=== PATIENT | female | born 1960 | race Caucasian/White ===

== ENCOUNTER 2022-06-26 11:05 | Emergency (ER) | payer SELFPAY ==
[~2022-06-26] VITALS: Ht 145 cm; Wt 90.7 kg
[~2022-06-26 11:05] MED LIST: PANT20TA2 PO; PRO AIR 90 MCG PO; RANI75TA30 PO; SCR1T1 PO
--- NOTE | 2022-06-26 11:20 | ED Syncope ---
General Chief Complaint: Dizziness/Syncope Stated Complaint: SYNCOPE Nursing Triage Note: PT PASSED OUT WHILE AT [facility] ET CAME BY EMS. COVID, FLU, AND STREP NEG. IV STARTED WITH NS BY [facility]. Source of Information: Patient Exam Limitations: No Limitations (KYAW JOHNSON APRN) History of Present Illness Date Seen by Provider: Jun 26, 2022 Time Seen by Provider: 11:19 Initial Comments To ER by EMS from [facility] where she presented with reports of nausea and vomiting today. She vomited once after taking a puff of her albuterol inhaler. She was tested for COVID flu and strep and was negative. She passed out while at [facility]. IV was started Timing/Prior Episodes: No Prior History Symptoms Prior to Episode: None Precipitating Factors: None Loss of Consciousness: No Loss of Consciousness Current Symptoms: Nausea (KYAW JOHNSON APRN) Initial Comments Patient initially seen by nurse practitioner, Kyaw Johnson. Patient is a 62-year-old female who was at work today when she was not feeling well. She had an episode of vomiting "yellow and orange" before she went to work. She just felt generalized malaise and body aches. No fevers or chills. She complained of some lower chest discomfort/upper abdominal discomfort that radiated into her back off-and-on today while at work. She left work due to feeling ill after having a negative COVID test. When she went back up to work for her flu test she had a syncopal event. She has no idea how long she was out for. She did not really have any symptoms prior to passing out. She is a diabetic. She had eaten this morning (3 granola bars). She denies dysuria, urgency or frequency. No diarrhea. No joint pains, rashes or swelling. No earache sore throat or runny nose. No cough. No shortness of breath. No headache. At the time of my evaluation she is completely asymptomatic of chest pain. She still feels some generalized malaise. All other review of systems reviewed and negative except as stated. Timing/Prior Episodes: No Prior History Symptoms Prior to Episode: Other (Chest discomfort radiating into her back) Loss of Consciousness: Brief (Seconds) Current Symptoms: Chest Pain, Nausea, Weakness (NAVEED POLK MD) Allergies and Home Medications Allergies Coded Allergies: diphenhydramine HCl (Unverified Allergy, Unknown, 09/15/12) Patient Home Medication List Home Medication List Reviewed: Yes (NAVEED POLK MD) Cephalexin (Cephalexin) 500 Mg Tablet, 500 MG PO TID Prescribed by: NAVEED POLK on 06/26/22 1340 Ondansetron (Ondansetron Odt) 4 Mg Tab.rapdis, 4 MG SL Q8H PRN for NAUSEA/VOMITING Prescribed by: NAVEED POLK on 06/26/22 1340 Pantoprazole Sodium (Protonix) 20 Mg Tablet.dr, 20 MG PO DAILY, (Reported) Entered as Reported by: SALUD GONG on 08/15/111746 Ranitidine Hcl (Ranitidine Hcl) 75 Mg Tablet, 150 MG PO BID, (Reported) Entered as Reported by: VICKI RANGEL on 08/12/11 08 Sucralfate (Carafate) 1 Gm Tab, 1 GM PO QID, (Reported) Entered as Reported by: SALUD GONG on 08/15/111746 [Pro Air 90 Mcg] , 2 PUFF PO QID, (Reported) Entered as Reported by: VICKI RANGEL on 08/12/11 0852 Review of Systems Constitutional: see HPI EENTM: no symptoms reported Respiratory: no symptoms reported Cardiovascular: chest pain Gastrointestinal: abdominal pain, nausea, vomiting Genitourinary: no symptoms reported : No Musculoskeletal: muscle cramps Skin: no symptoms reported Psychiatric/Neurological: Denies Headache, Denies Paresthesia, Denies Weakness; Other (Syncope) (NAVEED POLK MD) All Other Systems Reviewed Negative Unless Noted: Yes (NAVEED POLK MD) Past Nbnoraa-Jnxsds-Dzlcqz Hx Patient Social History Tobacco Use?: No Substance use?: No Alcohol Use?: No (KYAW JOHNSON APRN) Immunizations Up To Date 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 oz. kg; 43.00 BMI Method: (KYAW JOHNSON APRN) General Appearance: No Apparent Distress, WD/WN HEENT: PERRL/EOMI Neck: Normal Inspection Cardiovascular: Regular Rate, Rhythm, Normal Peripheral Pulses Respiratory: Chest Non Tender, Lungs Clear, Normal Breath Sounds, No Accessory Muscle Use, No Respiratory Distress Gastrointestinal: Normal Bowel Sounds, Non Tender, Soft Extremities: Normal Capillary Refill, Normal Inspection, Normal Range of Motion, Non Tender, No Calf Tenderness, No Pedal Edema Neurologic/Psychiatric: Alert, Oriented x3, No Motor/Sensory Deficits, Normal Mood/Affect, living manager II-XII Norm as Tested Cranial Nerves: Normal Hearing, Normal Speech, PERRL Coordination/Gait: Normal Finger to Nose, Normal Gait Motor/Sensory: No Motor Deficit, No Sensory Deficit, No Pronator Drift Skin: Normal Color, Warm/Dry (NAVEED POLK MD) Progress/Results/Core Measures Results/Orders Lab Results Laboratory Tests Test 06/26/22 11:14 06/26/22 12:23 06/26/22 12:53 Range/Units White Blood Count 17.1 H 4.3-11.0 10^3/uL Red Blood Count 4.42 3.80-5.11 10^6/uL Hemoglobin 14.2 11.5-16.0 g/dL Hematocrit 44 35-52 % Mean Corpuscular Volume 100 H 80-99 fL Mean Corpuscular Hemoglobin 32 25-34 pg Mean Corpuscular Hemoglobin Concent 32 32-36 g/dL Red Cell Distribution Width 12.3 10.0-14.5 % Platelet Count 211 130-400 10^3/uL Mean Platelet Volume 9.5 9.0-12.2 fL Immature Granulocyte % (Auto) 0 % Neutrophils (%) (Auto) 88 H 42-75 % Lymphocytes (%) (Auto) 4 L 12-44 % Monocytes (%) (Auto) 8 0-12 % Eosinophils (%) (Auto) 0 0-10 % Basophils (%) (Auto) 0 0-10 % Neutrophils # (Auto) 15.0 H 1.8-7.8 10^3/uL Lymphocytes # (Auto) 0.7 L 1.0-4.0 10^3/uL Monocytes # (Auto) 1.3 H 0.0-1.0 10^3/uL Eosinophils # (Auto) 0.0 0.0-0.3 10^3/uL Basophils # (Auto) 0.0 0.0-0.1 10^3/uL Immature Granulocyte # (Auto) 0.1 0.0-0.1 10^3/uL Neutrophils % (Manual) 82 % Lymphocytes % (Manual) 4 % Monocytes % (Manual) 8 % Band Neutrophils 6 % Toxic Granulation 1+ Blood Morphology Comment NORMAL Sodium Level 141 135-145 MMOL/L Potassium Level 4.6 3.6-5.0 MMOL/L Chloride Level 107 98-107 MMOL/L Carbon Dioxide Level 22 21-32 MMOL/L Anion Gap 12 5-14 MMOL/L Blood Urea Nitrogen 22 H 7-18 MG/DL Creatinine 0.75 0.60-1.30 MG/DL Estimat Glomerular Filtration Rate 91 BUN/Creatinine Ratio 29 Glucose Level 139 H 70-105 MG/DL Calcium Level 8.7 8.5-10.1 MG/DL Corrected Calcium 8.6 8.5-10.1 MG/DL Magnesium Level 1.5 L 1.6-2.4 MG/DL Total Bilirubin 0.5 0.1-1.0 MG/DL Aspartate Amino Transf (AST/SGOT) 15 5-34 U/L Alanine Aminotransferase (ALT/SGPT) 21 0-55 U/L Alkaline Phosphatase 69 40-136 U/L Troponin I < 0.028 <0.028 NG/ML Total Protein 7.1 6.4-8.2 GM/DL Albumin 4.1 3.2-4.5 GM/DL Urine Color YELLOW Urine Clarity CLEAR Urine pH 5.0 5-9 Urine Specific [place] >=1.030 1.016-1.022 Urine Protein TRACE H NEGATIVE Urine Glucose (UA) NEGATIVE NEGATIVE Urine Ketones 1+ H NEGATIVE Urine Nitrite NEGATIVE NEGATIVE Urine Bilirubin NEGATIVE NEGATIVE Urine Urobilinogen 0.2 < = 1.0 MG/DL Urine Leukocyte Esterase TRACE H NEGATIVE Urine RBC (Auto) NEGATIVE NEGATIVE Urine RBC 2-5 H /HPF Urine WBC 5-10 H /HPF Urine Squamous Epithelial Cells 2-5 /HPF Urine Renal Epithelial Cells NONE /HPF Urine Crystals NONE /LPF Urine Bacteria LARGE H /HPF Urine Casts NONE /LPF Urine Mucus NEGATIVE /LPF Urine Culture Indicated YES Influenza Type A (RT-PCR) Not Detected Not Detecte Influenza Type B (RT-PCR) Not Detected Not Detecte SARS-CoV-2 RNA (RT-PCR) Not Detected Not Detecte (NAVEED POLK MD) My Orders Orders - NAVEED POLK MD Covid 19 Inhouse Test (06/26/22 12:48) Influenza A And B By Pcr (06/26/22 12:48) Isolation Central Supply Req (06/26/22 12:48) Ketorolac Injection (Toradol Injection) (06/26/22 13:45) Ceftriaxone 1 Gm Pre-Mix (Rocephin 1 Gm (06/26/22 13:45) (NAVEED POLK MD) Vital Signs/I&O 06/26/22 06/26/22 11:05 14:15 Temp 36.8 Pulse 84 68 Resp 16 16 B/P (MAP) 123/69 (87) 120/68 Pulse Ox 94 94 O2 Delivery Room Air Room Air (NAVEED POLK MD) Blood Pressure Mean: 87 Progress Progress Note : Time: 13:35 Progress Note Patient seen and evaluated 62-year-old with a syncopal episode at work with generalized malaise, fatigue, upper abdominal and back pain, nausea and vomiting. Evaluation today includes physical exam, CBC, chemistry, urinalysis, COVID and flu test, EKG and chest x-ray. Patient has a leukocytosis of 17,000. She has evidence of bacteria and white cells in her urine. Vital signs are stable. She is afebrile. Physical exam is unremarkable. She has a normal-appearing EKG without signs of ectopy, it is sinus. Abdominal exam shows no pulsatile mass in the midline, minimal epigastric tenderness. Suspicion for urinary tract infection/a sending UTI. She was reexamined, still has some back pain. Again denies dysuria urgency frequency. Is not nauseated currently. Will treat with some Rocephin and Keflex as an outpatient. Advised return pre cautions. (NAVEED POLK MD) Initial ECG Impression Date: Jun 26, 2022 Initial ECG Impression Time: 11:37 Initial ECG Rate: 82 Initial ECG Rhythm: Normal Sinus Initial ECG Impression: Nonspecific Changes Initial ECG Comparisson: No Previous ECG Available (NAVEED POLK MD) Diagnostic Imaging Diagonstic Imaging: Xray Plain Films/CT/US/NM/MRI: chest Comments [facility] [place], [place] NAME: [facility] REC#: [id number] PT STATUS: REG ER : 1960 PHYSICIAN: KYAW JOHNSON APRN ADMIT DATE: 06/26/22/ER Draft Date of Exam:06/26/22 CHEST 1 VIEW, AP/PA ONLY INDICATION: Shortness of breath, syncope. Frontal chest obtained at 11:32 a.m. FINDINGS: There is cardiomegaly. There is no focal infiltrate or pneumothorax or pleural fluid. There is mild central vascular congestion without edema. IMPRESSION: Mild cardiomegaly and central vascular congestion. No jose david edema or infiltrate or pleural fluid. Dictated on workstation # [id number] Dict: 06/26/22 1215 Trans: 06/26/22 1219 [id number] Interpreted by: LATESHA WOODS MD Electronically signed by: (NAVEED POLK MD) Departure Impression Primary Impression: Syncope Qualified Codes: R55 - Syncope and collapse Additional Impression: Complicated UTI (urinary tract infection) Disposition: 01 HOME, SELF-CARE Condition: Improved Departure-Patient Inst. Decision time for Depature: 13:37 (NAVEED POLK MD) Referrals: NO,LOCAL PHYSICIAN (PCP/Family) Primary Care Physician Patient Instructions: Fainting, Adult ED, Urinary Tract Infection, Adult ED Add. Discharge Instructions: Take the antibiotics as prescribed. Drink plenty of fluids to stay well hydrated. Eat small frequent meals throughout the day. Tylenol/ibuprofen as needed for pain and fever over 100.4 If you have high fever, worsening pain, vomiting or any other emergent, concerning symptoms please come back to the Emergency Department for re- evaluation. Scripts Cephalexin (Cephalexin) 500 Mg Tablet 500 MG PO TID for 15 Days, #5 TAB Prov: NAVEED POLK MD 06/26/22 Ondansetron (Ondansetron Odt) 4 Mg Tab.rapdis 4 MG SL Q8H PRN for NAUSEA/VOMITING, #15 TAB Prov: NAVEED POLK MD 06/26/22 KYAW JOHNSON APRN Jun 26, 2022 11:20 NAVEED POLK MD Jun 26, 2022 11:55
[2022-06-26 11:24] LABS: BASOPHILS % (AUTO) 0 % (0-10); EOSINOPHILS % (AUTO) 0 % (0-10); HEMATOCRIT 44 % (35-52); HEMOGLOBIN 14.2 g/dL (11.5-16.0); LYMPHOCYTES # (AUTO) 0.7 10^3/uL (1.0-4.0); LYMPHOCYTES % (AUTO) 4 % (12-44); MEAN CORPUSCULAR HEMOGLOBIN 32 pg (25-34); MEAN CORPUSCULAR HGB CONC 32 g/dL (32-36); MEAN CORPUSCULAR VOLUME 100 fL (80-99); MEAN PLATELET VOLUME 9.5 fL (9.0-12.2); MONOCYTES # (AUTO) 1.3 10^3/uL (0.0-1.0); MONOCYTES % (AUTO) 8 % (0-12); NEUTROPHILS % (AUTO) 88 % (42-75); PLATELET COUNT 211 10^3/uL (130-400); WHITE BLOOD COUNT 17.1 10^3/uL (4.3-11.0)
[2022-06-26 11:34] LABS: BAND NEUTROPHILS 6 %; LYMPHOCYTES % (MANUAL) 4 %; MONOCYTES % (MANUAL) 8 %; NEUTROPHILS % (MANUAL) 82 %; RBC MORPH NORMAL; TOXIC GRANULATION/VACUOLAZATIO 1+
[2022-06-26 12:13] LABS: ALANINE AMINOTRANSFERASE 21 U/L (0-55); ALBUMIN 4.1 GM/DL (3.2-4.5); ALKALINE PHOSPHATASE 69 U/L (40-136); BILIRUBIN,TOTAL 0.5 MG/DL (0.1-1.0); BUN/CREATININE RATIO 29; CALCIUM 8.7 MG/DL (8.5-10.1); CARBON DIOXIDE 22 MMOL/L (21-32); CHLORIDE 107 MMOL/L (98-107); CREATININE SERUM 0.75 MG/DL (0.60-1.30); GFR ESTIMATED 91; GLUCOSE 139 MG/DL (70-105); MAGNESIUM 1.5 MG/DL (1.6-2.4); POTASSIUM 4.6 MMOL/L (3.6-5.0); SODIUM 141 MMOL/L (135-145); TOTAL PROTEIN 7.1 GM/DL (6.4-8.2)
--- NOTE | 2022-06-26 12:19 | Diagnostic Imaging Report ---
INDICATION: Shortness of breath, syncope. Frontal chest obtained at 11:32 a.m. FINDINGS: There is cardiomegaly. There is no focal infiltrate or pneumothorax or pleural fluid. There is mild central vascular congestion without edema. IMPRESSION: Mild cardiomegaly and central vascular congestion. No jose david edema or infiltrate or pleural fluid. Dictated by: Dictated on workstation # [id number]
[2022-06-26 12:39] LABS: BILIRUBIN,URINE NEGATIVE (NEGATIVE); CLARITY,URINE CLEAR; COLOR,URINE YELLOW; GLUCOSE, URINE (UA) NEGATIVE (NEGATIVE); KETONES,URINE 1+ (NEGATIVE); LEUKOCYTE ESTERASE ,URINE TRACE (NEGATIVE); NITRITE,URINE NEGATIVE (NEGATIVE); PROTEIN,URINE TRACE (NEGATIVE)
[2022-06-26 12:57] LABS: BACTERIA,URINE LARGE /HPF
[2022-06-26] MEDS ORDERED: CEPH500T PO (13:40)
[2022-06-26] MEDS ORDERED: ONDA4TAB11 SL (13:40)
[2022-06-26] MEDS ORDERED: cefTRIAXone 1 GM PRE-MIX 50 ML IV ONE (13:45)
[2022-06-26] MEDS ORDERED: KETOROLAC 30 MG/ML VIAL IVP ONE (13:45)
[2022-06-26 14:15] VITALS: BP 120/68
== END 2022-06-26 14:14 | disposition home or self-care (01) ==
LOC: EDUNIT# 11:05 → ER 11:07
DX: R55 Syncope and collapse (principal); N39.0 Urinary tract infection, site not specified; Z20.822 Contact with and (suspected) exposure to COVID-19
CPT/HCPCS: 36415; 71045; 80053; 81000; 83735; 84484; 85007; 85027; 87088; 87636; 93005